=== PATIENT | female | born 1990 | race African-American/Black ===

== ENCOUNTER 2016-07-19 18:29 | Emergency (ER) | payer OTHER, SELFPAY ==
[2016-07-19] MEDS ORDERED: Amoxicillin/Potassium Clav 875 MG TAB ONE (19:11)
[2016-07-19] MEDS ORDERED: Ondansetron HCl/PF 4 MG/2 ML Vial ONE ×2 (19:11→22:14)
[2016-07-19] MEDS ORDERED: Acetaminophen 325 MG TAB ONE (19:11)
[2016-07-19] MEDS ORDERED: Sodium Chloride 0.9% 1,000 ML ONE (19:11)
[2016-07-19 19:43] LABS: #Basophils 0.1 thou/uL (0.0-0.2); #Lymphocytes 1.5 thou/uL (1.20-3.40); #Monocytes 0.7 thou/uL (0.11-0.59); #Neutrophils 8.1 thou/uL (1.40-6.50); %Basophils 0.5 % (0.0-1.0); %Eosinophils 0.2 % (0.0-10.0); %Lymphocytes 14.8 % (21.0-51.0); %Monocytes 6.4 % (0.0-10.0); Hematocrit 38.2 % (36.0-47.0); Mean Platelet Volume 7.8 fL (7.4-10.4); Red Blood Cell (RBC) Count 4.64 mill/uL (4.20-5.40); White Blood Cell (WBC) Count 10.3 thou/uL (4.8-10.8)
[2016-07-19 19:53] LABS: Anion Gap 19 mmol/L (10-20); BUN (Urea Nitrogen) 7 mg/dL (7.0-18.7); Calc. Creatinine Clearance 0 mL/min (70-130); Calcium 9.9 mg/dL (7.8-10.44); Carbon Dioxide 20 mmol/L (22-29); Chloride 100 mmol/L (98-107); Estimated GFR-MDRD Greater than 90
[2016-07-19] MEDS ORDERED: Insulin Regular 300 UNITS/3 ML VIAL ONE (20:31)
[2016-07-19 23:12] LABS: Blood, Urine Negative (Negative); Glucose, Urine (Dipstick) 500 mg/dL (Negative); Ketone, Urine > or equal to 80 mg/dL (Negative); Nitrite Negative (Negative); Protein, Urine (Dipstick) 100 mg/dL (Neg-Trace)
[2016-07-19 23:13] LABS: Bacteria/HPF None Seen HPF (None Seen); Bilirubin Negative (Negative); RBC/HPF None Seen HPF (0-3); WBC/HPF None Seen HPF (0-3)
[2016-07-19] MEDS ORDERED: Metoclopramide HCl 10 MG/2 ML VIAL ONE (23:13)
[2016-07-20 00:13] LABS: Base Excess -3.6 mEq/L (0 (+/- 2.5))
--- NOTE | 2016-07-20 00:52 | ERRECORD ---
[facility] EMERGENCY RECORD HPI URI (21:51 AGRE) CHIEF COMPLAINT: Patient presents for evaluation of nasal congestion. HISTORIAN: History provided by patient, SINUS PRESSURE ON RIGHT WITH PAIN BEHIND THE RIGHT EYE FOR 4 DAYS. 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 HAS GREEN NASAL DRAINAGE. NO FEVER OR CHILLS. HAS BEEN VOMITING AND UNABLE TO KEEP ANYTHING DOWN FOR 2 DAYS. SENT HERE FROM WORK TODAY BECAUSE OF VOMITING. IS DIABETIC AND HAS NOT BEEN TAKING HER INSULIN. NO ABDOMINAL PAINS OR OTHER SYMPTOMS. LOCATION: No localizing symptoms. QUALITY: Pain is dull in nature, described as aching, described as a sensation of fullness, described as pressure-like. SEVERITY: Maximum severity of symptoms mild, Currently symptoms are mild. TIME COURSE: Gradual onset of symptoms, Symptoms are worsening. ASSOCIATED WITH: No associated chest pain, No associated chills, No associated fever, No associated neck pain, No associated shortness of breath, Denies any other complaints. EXACERBATED BY: Patient's condition exacerbated by nothing. RELIEVED BY: Patient's condition relieved by nothing. ROS (21:53 AGRE) CONSTITUTIONAL: Historian denies chills, denies fever, denies weakness. EYES: Historian reports eye pain, denies eye redness, denies vision changes. ENT: Historian reports rhinorrhea, reports sinus pain, denies sore throat, denies stridor. CARDIOVASCULAR: Historian denies chest pain, denies diaphoresis. RESPIRATORY: Historian denies cough, denies shortness of breath, denies sputum, denies stridor, denies wheezing. GI: Historian denies abdominal pain, reports nausea, reports vomiting. MUSCULOSKELETAL: Historian denies back pain, denies neck pain. SKIN: Historian denies skin changes, denies skin lesions. NEUROLOGIC: Historian denies confusion, denies dizziness, denies focal weakness, denies headache. HEMO/LYMPHATIC: Normal hematologic/lymphatic system review, Historian denies petechiae. PSYCHIATRIC: Negative psychiatric review of systems, Historian denies anxiety. PAST MEDICAL HISTORY (18:47 JPAR) MEDICAL HISTORY: Flu vaccine not up to date, Tetanus not up to date, Pneumococcal vaccine up to date, Date of immunization: 2014, Past medical history includes history of diabetes, Type II, Past medical history includes history of diabetes, Type II. FEMALE SURGICAL HISTORY: Surgical history of &a-1R&a+25V*p+0X*r0842A*c202B*c15G*c2P*p-0X&a-25V&a+1R Name: Angelita Crowell : 1990 F25 MedRec: [id number] AcctNum: [id number] Prepared: MonJul 20, 2016 00:53 by Interface Page 1 of 5 D [facility] EMERGENCY RECORD section. SOCIAL HISTORY: Patient has no smoking history, Patient denies alcohol use, Patient denies drug use. FAMILY HISTORY: Notes: family HX hypertension. KNOWN ALLERGIES No Known Drug Allergies CURRENT MEDICATIONS (18:45 JPAR) None VITAL SIGNS VITAL SIGNS: BP: 135/87, Pulse: 130, Resp: 16, Temp: 99.3 (Oral), Pain: 3, O2 sat: 100, Time: 07/19/2016 18:43. (18:43 JPAR) BP: 137/96, Pulse: 112, Resp: 18, Pain: 4, O2 sat: 100 on Room Air, Time: 07/19/2016 19:56. (19:56 MSMI) BP: 142/98, Pulse: 107, Resp: 16, Temp: 99.3 (Oral), Pain: 4, O2 sat: 100 on Room Air, Time: 07/19/2016 20:41. (20:41 MSMI) BP: 128/72, Pulse: 115, Resp: 18, O2 sat: 98 on Room Air, Time: 07/19/2016 21:40. (21:40 MSMI) BP: 134/89, Pulse: 109, Resp: 16, Temp: 99.0 (Oral), Pain: 0, O2 sat: 100 on Room Air, Time: 07/19/2016 22:51. (22:51 MSMI) BP: 129/86, Pulse: 109, Resp: 14, Pain: 0, O2 sat: 100 on Room Air, Time: 07/19/2016 23:20. (23:20 MSMI) BP: 122/81, Pulse: 111, Resp: 16, Temp: 99.3, Pain: 0, O2 sat: 100 on RA, Time: 07/20/2016 00:37. (MonJul 20, 2016 00:37 MSMI) PHYSICAL EXAM (21:54 AGRE) CONSTITUTIONAL: Vital Signs Reviewed, Patient afebrile, Patient appears non toxic, Patient appears pain free, Patient alert and oriented to person, place and time, Nursing notes reviewed. HEAD: Head exam included findings of head atraumatic, normocephalic. EYES: Eye exam included findings of eyelids normal to inspection, Pupils equally round and reactive to light, Extraocular muscles intact, Conjunctiva normal, Sclera normal, no periorbital ecchymosis, no periorbital edema, no periorbital erythema. ENT: Ear exam normal, tympanic membranes normal, Nose exam included findings of, turbinate mucosa discharge, ERYTHEMA AND SWELLING OF TURBINATES WITH YELLOW CORYZA, Pharynx, injected bilaterally, no swelling, symmetrical, Uvula, without edema, midline, Tonsils, not enlarged, without exudates, Mouth exam normal, Maxillary sinuses with, tenderness on the right, no erythema, no swelling. NECK: Neck exam normal, Neck exam included findings of normal range of motion, no meningeal signs. RESPIRATORY CHEST: Respiratory and chest exam normal, Respiratory exam included findings of no respiratory distress, Breath sounds clear, No wheezing, No rales, No rhonchi, Breath sounds not &a-1R&a+25V*p+0X*j5118M*c202B*c15G*c2P*p-0X&a-25V&a+1R Name: Angelita Crowell : 1990 F25 MedRec: [id number] AcctNum: [id number] Prepared: MonJul 20, 2016 00:53 by Interface Page 2 of 5 D [facility] EMERGENCY RECORD diminished. CARDIOVASCULAR: Cardiovascular exam included findings of, rate tachycardic, rhythm regular, Heart sounds normal, normal S1, normal S2, no murmurs, no rub, no gallop. ABDOMEN FEMALE: Abdominal exam normal, Abdominal exam included findings of abdomen nontender, Bowel sounds normal, Liver normal, Spleen normal, no distension, no mass, no pulsatile masses. BACK: Back exam included findings of normal inspection, range of motion normal. UPPER EXTREMITY: Upper extremity exam included findings of inspection normal, Range of motion normal. LOWER EXTREMITY: Lower extremity exam included findings of inspection normal, Range of motion normal. NEURO: Neuro exam normal, Neuro exam findings include patient oriented to person, place and time, Speech normal, Memory normal, Cranial nerves intact, no focal motor deficits. SKIN: Skin exam included findings of skin warm, dry, and normal in color. PSYCHIATRIC: Psychiatric exam normal, Normal affect. MEDICATION ADMINISTRATION SUMMARY Drug Name: Reglan injection, Dose Ordered: 10 mg, Route: IV Push, Status: Given, Time: 23:16 07/19/2016, Drug Name: *sodium chloride 0.9 % intravenous, Dose Ordered: 500 mL, Route: IV Fluid Infusion, Status: Given, Time: 22:52 07/19/2016, Drug Name: *HumuLIN R, Dose Ordered: 6 units, Route: IV Push, Status: Given, Time: 22:40 07/19/2016, Drug Name: *Zofran oral, Dose Ordered: 4 mg, Route: IV Push, Status: Given, Time: 22:19 07/19/2016, Drug Name: *sodium chloride 0.9 % intravenous, Dose Ordered: 500 mL, Route: IV Fluid Infusion, Status: Given, Time: 22:13 07/19/2016, Drug Name: *HumuLIN R, Dose Ordered: 6 units, Route: Subcutaneous, Status: Given, Time: 20:40 07/19/2016, Drug Name: sodium chloride 0.9 % intravenous, Dose Ordered: 1000 mL, Route: IV Fluid Infusion, Status: Given, Time: 20:37 07/19/2016, Drug Name: sodium chloride 0.9 % intravenous, Dose Ordered: 1000 mL, Route: IV Fluid Infusion, Status: Given, Time: 19:20 07/19/2016, Drug Name: ondansetron HCl intravenous, Dose Ordered: 4 mg, Route: IV Push, Status: Given, Time: 19:18 07/19/2016, Drug Name: Augmentin, Dose Ordered: 875 mg, Route: Oral, Status: Given, Time: 19:13 07/19/2016, Drug Name: Tylenol, Dose Ordered: 650 mg, Route: Oral, Status: Given, Time: 19:11 07/19/2016, *Additional information available in notes, Detailed record available in Medication Service section. DOCTOR NOTES (21:58 AGRE) RE-EVALUATION: Routine re-evaluation, after administration of antiemetics, Routine re-evaluation, after administration of IV fluids, The patient's condition has improved. &a-1R&a+25V*p+0X*m1576J*c202B*c15G*c2P*p-0X&a-25V&a+1R Name: Angelita Crowell : 1990 F25 MedRec: [id number] AcctNum: [id number] Prepared: MonJul 20, 2016 00:53 by Interface Page 3 of 5 pMD [facility] EMERGENCY RECORD TEXT: PATIENT REMAINED IN SINUS TACHYCARDIC IN THE ED DESPITE 3 LITERS OF IV FLUIDS. REVIEW OF HER OLD RECORDS SHOW THAT SHE HAS BEEN TACHYCARDIC FOR YEARS WITH ALL HER ED VISITS. A TSH WAS OBTAINED AND IT IS LOW SUGGESTING HYPERTHYRODISM. SHE HAD ELEVATED SERUM KETONES FROM AN EARLIER SPECIMEN BUT A VENOUS BLOOD GAS WAS OBTAINED DUE AND HER PH IS 7.44 AND BICARB 21. SHE LOOKS GOOD AND SAYS SHE FEELS GOOD. SHE DENIES ANY PAIN OR OTHER SYMPTOMS. SHE HAS REMAINED ALERT AND ORIENTED WITHOUT NEURO CHANGES IN THE ED. FEELING BETTER AFTER IV FLUIDS AND INSULIN. PATIENT SAYS DOES NOT TAKE HER INSULIN BECAUSE SHE IS STUBBORN. HAD LENGTHY DISCUSSION WITH HER ABOUT THE HALF-WAY RISK AND DISEASE ASSOCIATED WITH DIABETES AND UNCONTROLLED HYPERGLYCEMIA. ADVISED HER OF THE FINDINGS ON EXAM, RESULTS OF HER TEST, MANAGEMENT OF HER SYMPTOMS, NEED TO RESTART HER INSULIN AND NEED FOR CLOSE FOLLOW UP. SHE EXPRESS UNDERSTANDING AND AGREEMENT AND SAYS THAT SHE WILL RESTART HER MEDICATIONS. SHE HAS A FAMILY MEMBER HERE WHO IS A NURSE AND WILL BE TAKING CARE OF HER AT HOME. SHE WILL CHECK HER BLOOD SUGAR TONIGHT AND WILL RESTART HER INSULIN IN THE MORNING. SHE DOES NOT LOOK TOXIC AND I FEEL COMFORTABLE SENDING HER HOME AT THIS TIME. DISCUSSED THIS WITH HER AND THE FAMILY AND THEY AGREE WITH THIS PLAN. ADVISED THEM OF THE TACHYCARDIA AND TSH. PATIENT STATUS: Patient has improved since arrival to emergency department. PATIENT PLAN: The patient will be discharged. DATA REVIEWED: Old records obtained, Old records reviewed, Discussed with family, Lab data reviewed. PROBLEM LIST No recorded problems DIAGNOSIS (MonJul 20, 2016 00:29 AGRE) FINAL: PRIMARY: Type 2 Diabetes mellitus (NIDDM) - controlled, ADDITIONAL: ACUTE SINUSITIS UNSPECIFIED, HYPERTHYROIDISM. PRESCRIPTION Levemir: VIAL (ML) : 100 unit/mL : SUBCUTANEOUS : Quantity: 7 Unit: units Route: SUBCUTANEOUS Schedule: 2 times a day Dispense: 1 Unit: vial(s) May substitute. Refills: No Refills . (20:53 AGRE) NOTES: No Refills. (20:53 AGRE) Augmentin: TABLET : 875 mg-125 mg : ORAL : Quantity: 1 Unit: tab(s) Route: ORAL Schedule: every 12 hours Dispense: 20 Unit: tab(s) May substitute. Refills: No Refills . (20:54 AGRE) NOTES: No Refills. (20:54 AGRE) Zofran oral: TABLET : 4 mg : ORAL : Quantity: 1 Unit: tab(s) Route: ORAL Schedule: every 6 hours PRN Dispense: 10 May substitute. Refills: No Refills . (20:56 AGRE) NOTES: No Refills. (20:56 AGRE) &a-1R&a+25V*p+0X*c8980D*c202B*c15G*c2P*p-0X&a-25V&a+1R Name: Angelita Crowell : 1990 F25 MedRec: [id number] AcctNum: [id number] Prepared: MonJul 20, 2016 00:53 by Interface Page 4 of 5 pMD [facility] EMERGENCY RECORD DISPOSITION PATIENT: Disposition Type: Discharge, Disposition: *Discharge Home, Condition: Improved. (20:48 AGRE) Disposition Type: (none), Disposition: (none). (22:58 AGRE) Disposition Type: Discharge, Disposition: *Discharge Home. (23:42 AGRE) Patient left the department. (MonJul 20, 2016 00:40 MSMI) [place]ightower: AGRE=MD Sean, Panchito HATHAWAY=ELIZABETH Greenberg Jason MSMI=ELIZABETH Ellis, Cindi &a-1R&a+25V*p+0X*q8345J*c202B*c15G*c2P*p-0X&a-25V&a+1R Name: Angelita Crowell : 1990 F25 MedRec: [id number] AcctNum: [id number] Prepared: Sesar Jul 20, 2016 00:53 by Interface Page 5 of 5 pMD MTDD
--- NOTE | 2016-07-20 00:58 | PICIS ---
[facility] EMERGENCY RECORD TRIAGE (MonJul 19, 2016 18:45 JPAR) TRIAGE NOTES: Sinus pressure, runny nose. Right side headache. (MonJul 19, 2016 18:45 JPAR) PATIENT: NAME: Angelita Crowell, AGE: 25, GENDER: female, : Sat 1990, TIME OF GREET: MonJul 19, 2016 18:30, PREFERRED LANGUAGE: Belarusian, ETHNICITY: Not or , ECODE BILLING MAP: [facility], SSN: [id number], Zip Code: [address], KG WEIGHT: 58.97, PHONE: , , , PERSON ID: [id number], PCP: [facility]. (MonJul 19, 2016 18:45 JPAR) COMPLAINT: Sinus Pain / Hyperglycemia. (23:58 MSMI) ADMISSION: URGENCY: 4 Non Urgent, ADMISSION SOURCE: Home, TRANSPORT: CAR, BED: TRIAGE. (MonJul 19, 2016 18:45 JPAR) ASSESSMENT: Assessment: right sided sinus headache with runny nose, 3 days, Symptoms began 3 days, Symptoms began 3 days ago. (18:47 JPAR) SIRS SCORING: Heart Rate 110-139 (2), Temp range 96.8-101.1 (0), respiratory rate 12-24 (0), Mental Status altered: no (0), Infection or Suspected Infection: No. (18:47 JPAR) TRIAGE SCREENING: Patient denies suicidal ideation, Patient denies presence of domestic violence. (18:47 JPAR) PROVIDERS: TRIAGE NURSE: Jose Greenberg RN. (MonJul 19, 2016 18:45 JPAR) VITAL SIGNS: BP 135/87, Pulse 130, Resp 16, Temp 99.3, (Oral), Pain 3, O2 Sat 100, Time 07/19/2016 18:43. (18:43 JPAR) PREVIOUS VISIT ALLERGIES: No Known Drug Allergies. (MonJul 19, 2016 18:45 JPAR) No Known Drug Allergies. (18:47 JPAR) KNOWN ALLERGIES No Known Drug Allergies CURRENT MEDICATIONS (18:45 JPAR) None VITAL SIGNS VITAL SIGNS: BP: 135/87, Pulse: 130, Resp: 16, Temp: 99.3 (Oral), Pain: 3, O2 sat: 100, Time: 07/19/2016 18:43. (18:43 JPAR) BP: 137/96, Pulse: 112, Resp: 18, Pain: 4, O2 sat: 100 on Room Air, Time: 07/19/2016 19:56. (19:56 MSMI) BP: 142/98, Pulse: 107, Resp: 16, Temp: 99.3 (Oral), Pain: 4, O2 sat: 100 on Room Air, Time: 07/19/2016 20:41. (20:41 MSMI) BP: 128/72, Pulse: 115, Resp: 18, O2 sat: 98 on Room Air, Time: 07/19/2016 21:40. (21:40 MSMI) BP: 134/89, Pulse: 109, Resp: 16, Temp: 99.0 (Oral), Pain: 0, O2 sat: 100 on Room Air, Time: 07/19/2016 22:51. (22:51 MSMI) BP: 129/86, Pulse: 109, Resp: 14, Pain: 0, O2 sat: 100 on Room Air, Time: 07/19/2016 23:20. (23:20 MSMI) BP: 122/81, Pulse: 111, Resp: 16, Temp: 99.3, Pain: 0, O2 sat: 100 on RA, Time: 07/20/2016 00:37. (MonJul 20, 2016 00:37 MSMI) &a-1R&a+25V*p+0X*s5594A*c202B*c15G*c2P*p-0X&a-25V&a+1R Name: Angelita Crowell : 1990 F25 MedRec: [id number] AcctNum: [id number] Prepared: MonJul 20, 2016 01:01 by Interface Page 1 of 16 D [facility] EMERGENCY RECORD NURSING ASSESSMENT: ENT CONSTITUTIONAL: Patient arrives ambulatory, Gait steady, History obtained from patient, Patient appears comfortable, Patient cooperative, Patient alert, Oriented to person, place and time, Skin warm, Skin dry, Skin normal in color, Mucous membranes pink, Mucous membranes moist, Patient complains of Sinus Headache runny nose. (18:45 JPAR) Patient arrives ambulatory, Gait steady, History obtained from patient, Patient appears, uncomfortable, Patient cooperative, Patient alert, Oriented to person, place and time, Skin warm, Skin dry, Skin normal in color, Mucous membranes pink, Mucous membranes moist, Patient is well-groomed, Patient complains of Cough, Sinus Pressure, patient reports right sided sinus pressure (under eye) beginning Monday. Patient reports coughing up mucous, yellow colored sputum. Patient reports seasonal allergies. Patient comes to ED with tachycardia. (19:52 MSMI) PAIN: aching pain, R temporal eye, Onset of pain 3 days, on a scale 0-10 patient rates pain as 3. (18:45 JPAR) throbbing pain, Under right eye, Onset of pain 07/13/2016, intermittent, on a scale 0-10 patient rates pain as 4, Pain exacerbated by nothing, Nothing has been tried to alleviate the pain. (19:52 MSMI) ENT: Ear assessment findings include ear normal to inspection, no drainage from ears, no complaint of hearing deficit, no complaint of tinnitus, no complaint of dizziness, no myringotomy tubes, no foreign body, Nasal assessment findings include nose normal to inspection, Sinuses normal, Nasal mucosa normal, no bleeding, Discharge, thick, yellow, from bilateral nare, no complaint of congestion, no complaint of foreign body, Mouth and throat assessment findings include mouth inspection normal, Uvula normal, Tonsils normal, Mucous membranes pink, and moist, Able to swallow, Speech normal, no associated fever, no associated headache, no associated decrease in oral intake. (19:52 MSMI) RESPIRATORY/CHEST: Breath sounds clear, Respiratory assessment findings include respiratory effort easy, Respirations regular, Conversing normally, Neck and chest exam findings include trachea midline, Chest expansion equal, Chest movement symmetrical, no signs of distress, no retractions noted, no cyanosis, no jugular vein distension, no tenderness to palpation, no crepitus noted, no subcutaneous emphysema noted, no deformity noted, no associated cough noted, no associated fever, no associated fume exposure. (18:45 JPAR) Breath sounds clear, Respiratory assessment findings include respiratory effort easy, Respirations regular, Conversing normally, Neck and chest exam findings include trachea midline, Chest expansion equal, Chest movement symmetrical, no signs of distress, no retractions noted, no cyanosis, no jugular vein distension, no tenderness to palpation, Associated with cough, productive of, yellow sputum, no associated fever, no associated fume &a-1R&a+25V*p+0X*v5040K*c202B*c15G*c2P*p-0X&a-25V&a+1R Name: Angelita Crowell : 1990 F25 MedRec: [id number] AcctNum: [id number] Prepared: MonJul 20, 2016 01:01 by Interface Page 2 of 16 pMD [facility] EMERGENCY RECORD exposure. (19:52 MSMI) SAFETY: Side rails up, Cart/Stretcher in lowest position, Family at bedside, Call light within reach, Hospital ID band on. (18:45 JPAR) Side rails up, Cart/Stretcher in lowest position, Call light within reach, Hospital ID band on. (19:52 MSMI) NURSING ASSESSMENT: FALL RISK (23:04 MSMI) FALL RISK: Fall risk assessment findings include: no history of falls (0), No bed rest greater than 2 days (0), No use of level of consciousness altering agents with mentation or cognitive changes (0), No change in blood pressure (0), No sensory deficits (0), No impaired mobility (0), No neurologic diagnosis (0), No elimination problems (0), No confusion (0), Total score 0. NURSING ASSESSMENT: SKIN (23:04 MSMI) SKIN: Skin assessment findings include skin warm, Skin dry, Skin normal in color, Inspection findings include no abrasions, Inspection findings include no contusion, Inspection findings include: No pressure ulcer to the shoulder, Inspection findings include no pressure ulcer to the elbow, Inspection findings include no pressure ulcers to the hip, Inspection findings include no pressure ulcer to the sacrum, Inspection findings include no pressure ulcer to the heel, Inspection findings include no pressure ulcer, Inspection findings include no pressure ulcer, Inspection findings include no rash, Inspection findings include no signs of infection, Inspection findings include no signs of trauma, Inspection findings include no swelling. [place] SCALE: (4) Sensory perception has no impairment, (4) Skin is rarely moist, (4) Patient walks frequently, (4) No mobility limitations, (3) Adequate nutrition, (3) Patient has no apparent problem moving. SAFETY: Side rails up, Cart/Stretcher in lowest position, Family at bedside, Call light within reach, Hospital ID band on. NURSING PROCEDURE: BEDSIDE SIRS TESTING (23:05 MSMI) SCORES: Heart Rate 55-109 (0), Temp range 96.8-101.1 (0), respiratory rate 12-24 (0), Latest WBC 3-14.9 (0), Mental Status altered: no (0), Yes, Infection or Suspected Infection. NURSING PROCEDURE: BEDSIDE TESTING PATIENT IDENTIFIER: Patient actively involved in identification process, Patient's identity verified by patient stating name, Patient's identity verified by patient stating date, Patient's identity verified by hospital ID bracelet. (20:29 MSMI) GLUCOSE: Glucose testing indicated for diabetic patient, Capillary blood sample, Result (mg/dl) 278. (20:29 [facility] Glucose testing indicated for hyperglycemia, Capillary blood sample, Result (mg/dl) 249. (22:33 [facility]) Venous blood sample, Result (mg/dl) 173. (23:15 [facility]) &a-1R&a+25V*p+0X*f0558P*c202B*c15G*c2P*p-0X&a-25V&a+1R Name: Angelita Crowell : 1990 F25 MedRec: [id number] AcctNum: [id number] Prepared: MonJul 20, 2016 01:01 by Interface Page 3 of 16 [facility] EMERGENCY RECORD FOLLOW-UP: After procedure, results given to Dr. Sean MD. (20:29 MSMI) After procedure, results given to Dr. MORA. (22:33 [facility]) After procedure, results given to Dr. MORA. (23:15 [facility]) SAFETY: Side rails up, Cart/Stretcher in lowest position, Family at bedside, Call light within reach, Hospital ID band on. (20:29 MSMI) NURSING PROCEDURE: DISCHARGE NOTE (MonJul 20, 2016 00:37 MSMI) DISCHARGE: Patient discharged to home, ambulating without assistance, family driving, accompanied by parent, Discharge instructions given to patient, Discharge instructions given to mother, Prescriptions given and instructions on side effects given, Above person(s) verbalized understanding of discharge instructions and follow-up care, Patient treated and evaluated by physician. BELONGINGS: Belongings and valuables with patient at time of discharge include:, Belongings remain with patient, Valuables remain with patient. SAFETY: Side rails up, Cart/Stretcher in lowest position, Family at bedside, Call light within reach, Hospital ID band on. VITAL SIGNS: BP: 122, / 81, Pulse: 111, Resp: 16, Temp: 99.3, Pain: 0, O2 sat: 100, on: RA. NURSING PROCEDURE: ENT (20:00 MSMI) PATIENT IDENTIFIER: Patient actively involved in identification process, Patient's identity verified by patient stating name, Patient's identity verified by patient stating date. ENT: ENT care indicated for specimen collection, Nasal swab collected, labeled in the presence of the patient and sent to lab for testing of, influenza A, influenza B, collected by ELIZABETH Puente. SAFETY: Side rails up, Cart/Stretcher in lowest position, Family at bedside, Call light within reach, Hospital ID band on. NURSING PROCEDURE: IV PATIENT IDENITIFIER: Patient actively involved in identification process, Patient's identity verified by patient stating name, Patient's identity verified by patient stating date, Patient's identity verified by hospital ID bracelet, Patient's identity verified by family member. (19:15 JPAR) IV SITE 1: IV therapy indicated for hydration, IV therapy indicated for medication administration, IV established, to the right antecubital, using a 20 gauge catheter, in one attempt, IV site prepped with clorohexaphine, Saline lock established, Flushed with normal saline (mls): 10, Labs drawn at time of placement, labeled in the presence of the patient and sent to lab. (19:15 JPAR) FOLLOW-UP SITE 1: After procedure, no drainage at IV site, After procedure, no swelling at IV site, After procedure, no redness at IV site, IV discontinued, due to patient being discharged, catheter intact. (MonJul 20, 2016 00:35 MSMI) SAFETY: Side rails up, Cart/Stretcher in lowest position, Family &a-1R&a+25V*p+0X*d6603L*c202B*c15G*c2P*p-0X&a-25V&a+1R Name: Angelita Crowell : 1990 F25 MedRec: [id number] AcctNum: [id number] Prepared: MonJul 20, 2016 01:01 by Interface Page 4 of 16 pMD [facility] EMERGENCY RECORD at bedside, Call light within reach, Hospital ID band on. (19:15 [facility]) NURSING PROCEDURE: LAB DRAW LAB DRAW: Lab draw indicated for obtaining specimens for evaluation, Subsequent lab draw performed, from vascular access device, existing IV site, RIGHT AC, Lab specimens labeled in the presence of the patient and sent to lab, 10ML WASTED BEFORE OBTAINING SAMPLE. (23:15 [facility]) Lab draw indicated for obtaining specimens for evaluation, Subsequent lab draw performed, from vascular access device, existing IV site, RIGHT AC, Lab specimens labeled in the presence of the patient and sent to lab, 10ML WASTED BEFORE OBTAINING SAMPLE. (MonJul 20, 2016 00:00 [facility]) NURSING PROCEDURE: NURSE NOTES (23:19 MSMI) NURSES NOTES: Notes: Patient ambulates to the restroom and voids 200mL of clear, yellow urine. NURSING PROCEDURE: URINE COLLECTION (22:54 MSMI) PATIENT IDENTIFIER: Patient actively involved in identification process, Patient's identity verified by patient stating name, Patient's identity verified by patient stating date, Patient's identity verified by family member. URINE COLLECTION FEMALE: Urine collection indicated for facilitate diagnosis, Urine collected by mid-stream clean catch, urine yellow in color, and clear, no sediment noted, Specimen labeled in the presence of the patient and sent to lab, Specimen obtained for culture labeled in the presence of the patient and sent to lab, Notes: Collected by ELIZABETH Garcia prior to assuming care. SAFETY: Side rails up, Cart/Stretcher in lowest position, Family at bedside, Call light within reach, Hospital ID band on. ORDER DETAILS Order Name: Basic Metabolic Panel, Status: Active, Time: 19:06 07/19/2016, User: LIZETTE, - Ordered for: MD Mora Andrea, - Entered by: MD Mora Andrea - Tue Jul 19, 2016 19:06, - Quantity: 1, Order Name: Beta-Hydroxybutyrate (Ketone), Status: Active, Time: 22:45 07/19/2016, User: LIZETTE, - Ordered for: MD Mora Andrea, - Entered by: MD Mora Andrea - Tue Jul 19, 2016 22:45, - Quantity: 1, Order Name: Beta-Hydroxybutyrate (Ketone), Status: Canceled, Time: 22:12 07/19/2016, User: System, - Ordered for: MD Mora Andrea, - Entered by: MD Mora Andrea - Tue Jul 19, 2016 20:14, - Quantity: 1, &a-1R&a+25V*p+0X*l5005I*c202B*c15G*c2P*p-0X&a-25V&a+1R Name: Angelita Crowell : 1990 F25 MedRec: [id number] AcctNum: [id number] Prepared: MonJul 20, 2016 01:01 by Interface Page 5 of 16 [facility] EMERGENCY RECORD Order Name: BLOOD GLUCOSE MONITOR, Status: Done, Time: 20:28 07/19/2016, User: EDU, - Ordered for: MD Mora Andrea, - Entered by: MD Mora Andrea - asntino Jul 19, 2016 20:14, - Quantity: 1, Order Name: CBC with Differential, Status: Active, Time: 19:06 07/19/2016, User: LIZETTE, - Ordered for: MD Mora Andrea, - Entered by: MD Mora Andrea - Tue Jul 19, 2016 19:06, - Quantity: 1, Order Name: Influenza A&B Ag Screen, Status: Active, Time: 19:58 07/19/2016, User: EDU, - Ordered for: MD Mora Andrea, - Entered by: ELIZABETH Ellis Megan - Tue Jul 19, 2016 19:58, - Quantity: 1, Order Name: Test, Urine (BHCG), Status: Active, Time: 19:06 07/19/2016, User: LIZETTE, - Ordered for: MD Mora Andrea, - Entered by: MD Mora Andrea - Tue Jul 19, 2016 19:06, - Quantity: 1, Order Name: SALINE LOCK, Status: Done, Time: 19:28 07/19/2016, User: RIVAS, - Ordered for: MD Mora Andrea, - Entered by: MD Mora Andrea - santino Jul 19, 2016 19:06, - Quantity: 1, Order Name: Thyroid Stimulating Hormone, Status: Active, Time: 22:47 07/19/2016, User: LIZETTE, - Ordered for: MD Mora Andrea, - Entered by: MD Mora Andrea - Tue Jul 19, 2016 22:47, - Quantity: 1, Order Name: Urinalysis w/ Rflx Microscopic, Status: Active, Time: 22:46 07/19/2016, User: LIZETTE, - Ordered for: MD Mora Andrea, - Entered by: MD Mora Andrea - Tue Jul 19, 2016 22:46, - Quantity: 1, Order Name: VBG (For BUR,MAD, and ROSE MARY), Status: Active, Time: 00:01 07/20/2016, User: MANDEEP, - Ordered for: MD Mora Andrea, - Entered by: ELIZABETH Garcia, Marilou - MonJul 20, 2016 00:01, - Quantity: 1. MEDICATION ADMINISTRATION SUMMARY Drug Name: Reglan injection, Dose Ordered: 10 mg, Route: IV Push, Status: Given, Time: 23:16 07/19/2016, Drug Name: *sodium chloride 0.9 % intravenous, Dose Ordered: 500 mL, Route: IV Fluid Infusion, Status: Given, Time: 22:52 07/19/2016, Drug Name: *HumuLIN R, Dose Ordered: 6 units, Route: IV Push, Status: Given, Time: 22:40 07/19/2016, Drug Name: *Zofran oral, Dose Ordered: 4 mg, Route: IV Push, Status: &a-1R&a+25V*p+0X*m9038J*c202B*c15G*c2P*p-0X&a-25V&a+1R Name: Angelita Crowell : 1990 F25 MedRec: [id number] AcctNum: [id number] Prepared: MonJul 20, 2016 01:01 by Interface Page 6 of 16 pMD [facility] EMERGENCY RECORD Given, Time: 22:19 07/19/2016, Drug Name: *sodium chloride 0.9 % intravenous, Dose Ordered: 500 mL, Route: IV Fluid Infusion, Status: Given, Time: 22:13 07/19/2016, Drug Name: *HumuLIN R, Dose Ordered: 6 units, Route: Subcutaneous, Status: Given, Time: 20:40 07/19/2016, Drug Name: sodium chloride 0.9 % intravenous, Dose Ordered: 1000 mL, Route: IV Fluid Infusion, Status: Given, Time: 20:37 07/19/2016, Drug Name: sodium chloride 0.9 % intravenous, Dose Ordered: 1000 mL, Route: IV Fluid Infusion, Status: Given, Time: 19:20 07/19/2016, Drug Name: ondansetron HCl intravenous, Dose Ordered: 4 mg, Route: IV Push, Status: Given, Time: 19:18 07/19/2016, Drug Name: Augmentin, Dose Ordered: 875 mg, Route: Oral, Status: Given, Time: 19:13 07/19/2016, Drug Name: Tylenol, Dose Ordered: 650 mg, Route: Oral, Status: Given, Time: 19:11 07/19/2016, *Additional information available in notes, Detailed record available in Medication Service section. MEDICATION SERVICE Augmentin: Order: Augmentin (amoxicillin trihydrate/potassium clavulanate) - Dose: 875 mg : Oral Ordered by: Panchito Mora MD Entered by: Panchito Mora MD MonJul 19, 2016 19:04 , Acknowledged by: Jose Greenberg RN MonJul 19, 2016 19:09 Documented as given by: Jose Greenberg RN MonJul 19, 2016 19:13 Patient, Medication, Dose, Route and Time verified prior to administration. Patient appears Awake and alert- acceptable, Correct patient, time, route, dose and medication confirmed prior to administration, Patient advised of actions and side-effects prior to administration, Allergies confirmed and medications reviewed prior to administration, Patient in position of comfort, Side rails up, Cart in lowest position, Family at bedside, Call light in reach. HumuLIN R: Order: HumuLIN R (insulin regular, human) - Dose: 6 units : Subcutaneous Schedule: Now Notes: Read back and verified, Verbal Order Ordered by: Panchito Mora MD Entered by: Cindi Ellis RN Jul 19, 2016 20:39 , Acknowledged by: Cindi Ellis RN Jul 19, 2016 20:40 Documented as given by: Cindi Ellis RN Jul 19, 2016 20:40 Patient, Medication, Dose, Route and Time verified prior to administration. Verbal order read back and verified, Amount given: 6 units, Medication administered to right abdomen, Correct patient, time, route, dose and medication confirmed prior to administration, Patient advised of actions and side-effects prior to administration, Allergies confirmed and medications reviewed prior to administration, Patient tolerated procedure well, Advised not to ambulate without assistance, Patient in position of comfort, Side rails up, Cart in lowest position, Family at bedside, Call light in reach, &a-1R&a+25V*p+0X*i0146F*c202B*c15G*c2P*p-0X&a-25V&a+1R Name: Angelita Crowell : 1990 F25 MedRec: [id number] AcctNum: [id number] Prepared: MonJul 20, 2016 01:01 by Interface Page 7 of 16 pMD [facility] EMERGENCY RECORD Co-signed by: Travis Burks RN MonJul 19, 2016 22:18. HumuLIN R: Order: HumuLIN R (insulin regular, human) - Dose: 6 units : IV Push Schedule: Now Notes: Read back and verified, Verbal Order Ordered by: Panchito Mora MD Entered by: Panchito Mora MD Jul 19, 2016 22:37 Documented as given by: Marilou Garcia RN Jul 19, 2016 22:40 Patient, Medication, Dose, Route and Time verified prior to administration. Amount given: 6UNITS, IV SITE #1 IVP, subsequent different medication, Slowly, Awake and alert- acceptable, Catheter placement confirmed via flush prior to administration, IV site without signs or symptoms of infiltration during medication administration, No swelling during administration, No drainage during administration, IV flushed after administration, Correct patient, time, route, dose and medication confirmed prior to administration, Patient advised of actions and side-effects prior to administration, Allergies confirmed and medications reviewed prior to administration, Co-signed by: Cindi Ellis RN MonJul 19, 2016 22:44. : Follow Up : No signs or symptoms of allergic reaction noted, _IV SITE #1:_, BS DECREASED TO 173. (23:15 [facility]) ondansetron HCl intravenous: Order: ondansetron HCl intravenous (ondansetron HCl) - Dose: 4 mg : IV Push Ordered by: Panchito Mora MD Entered by: Panchito Mora MD Jul 19, 2016 19:07 , Acknowledged by: Jose Greenberg RN MonJul 19, 2016 19:09 Documented as given by: Jose Greenberg RN Jul 19, 2016 19:18 Patient, Medication, Dose, Route and Time verified prior to administration. IV SITE #1 IVP, initial medication, Slowly, Awake and alert- acceptable, Connections checked prior to administration, Line traced prior to administration, Catheter placement confirmed via flush prior to administration, IV site without signs or symptoms of infiltration during medication administration, No swelling during administration, No drainage during administration, IV flushed after administration, Correct patient, time, route, dose and medication confirmed prior to administration, Patient advised of actions and side-effects prior to administration, Allergies confirmed and medications reviewed prior to administration, Patient in position of comfort, Side rails up, Cart in lowest position, Family at bedside, Call light in reach. Reglan injection: Order: Reglan injection (metoclopramide HCl) - Dose: 10 mg : IV Push Ordered by: Panchito Mora MD Entered by: Panchito Mora MD Jul 19, 2016 23:13 , Acknowledged by: Cindi Ellis RN MonJul 19, 2016 23:16 Documented as given by: Cindi Ellis RN MonJul 19, 2016 23:16 Patient, Medication, Dose, Route and Time verified prior to administration. Amount given: 10 mg, IV SITE #1 added to existing IV Fluid, Type: &a-1R&a+25V*p+0X*r0846U*c202B*c15G*c2P*p-0X&a-25V&a+1R Name: Angelita Crowell : 1990 F25 MedRec: [id number] AcctNum: [id number] Prepared: MonJul 20, 2016 01:01 by Interface Page 8 of 16 pMD [facility] EMERGENCY RECORD normal saline, Amount of fluid remaininmL, Awake and alert- acceptable, Ordering Physician approved to Give, Catheter placement confirmed via flush prior to administration, IV site without signs or symptoms of infiltration during medication administration, No swelling during administration, No drainage during administration, IV flushed after administration, Correct patient, time, route, dose and medication confirmed prior to administration, Patient advised of actions and side-effects prior to administration, Allergies confirmed and medications reviewed prior to administration, Patient tolerated procedure well, Patient in position of comfort, Side rails up, Cart in lowest position, Call light in reach, ERMD orders Reglan to be added to existing IV fluids; order read back and verified. sodium chloride 0.9 % intravenous: Order: sodium chloride 0.9 % intravenous (0.9 % sodium chloride) - Dose: 1000 mL : IV Fluid Infusion Ordered by: Panchito Mora MD Entered by: Panchito Mora MD MonJul 19, 2016 19:07 Documented as given by: Jose Greenberg RN MonJul 19, 2016 19:20 Patient, Medication, Dose, Route and Time verified prior to administration. IV SITE #1 IV fluids established for hydration, IV SITE #1 into right antecubital, IV SITE #1 1st bag hung, amount 1 Liter hung, IV SITE #1 bolus of 1000 ml established, via primary tubing, Awake and alert- acceptable, Connections checked prior to administration, Line traced prior to administration, Catheter placement confirmed via flush prior to administration, IV site without signs or symptoms of infiltration during medication administration, No swelling during administration, No drainage during administration, IV flushed after administration, Correct patient, time, route, dose and medication confirmed prior to administration, Patient advised of actions and side-effects prior to administration, Allergies confirmed and medications reviewed prior to administration, Patient in position of comfort, Side rails up, Cart in lowest position, Family at bedside, Call light in reach. : Follow Up : Response assessment performed, No signs or symptoms of allergic reaction noted, Site inspection shows, No swelling at administration site, No drainage at administration site, No bleeding at site, No bruising noted at site, _IV SITE #1:_, IV fluid infusion discontinued, on MonJul 19, 2016 20:43, Total fluid hydration time IV site 1 1 hour, 25 minutes, ., Total amount infused: 1 liter, IV Line flushed after administration, Advised not to ambulate without assistance, Patient in position of comfort, Side rails up, Cart in lowest position, Family at bedside, Call light in reach, Attending physician aware. (20:42 [facility]) : Follow Up : Response assessment performed, No signs or symptoms of allergic reaction noted, _IV SITE #1:_, IV fluid infusion discontinued, on MonJul 19, 2016 21:45, Total fluid hydration time IV site 1 2 hours, 25 minutes, ., Total amount infused: 1 LITER, IV Line flushed after administration. (22:08 [facility]) sodium chloride 0.9 % intravenous: Order: sodium chloride 0.9 % intravenous (0.9 % sodium chloride) - Dose: 1000 mL : IV &a-1R&a+25V*p+0X*t0550X*c202B*c15G*c2P*p-0X&a-25V&a+1R Name: Angelita Crowell : 1990 F25 MedRec: [id number] AcctNum: [id number] Prepared: MonJul 20, 2016 01:01 by Interface Page 9 of 16 D [facility] EMERGENCY RECORD Fluid Infusion Ordered by: Panchito Mora MD Entered by: Panchito Mora MD MonJul 19, 2016 20:07 , Acknowledged by: Cindi Ellis RN MonJul 19, 2016 20:30 Documented as given by: Cindi Ellis RN MonJul 19, 2016 20:37 Patient, Medication, Dose, Route and Time verified prior to administration. Amount given: 1000mL, IV SITE #1 IV fluids established for hydration, IV SITE #1 into right antecubital, IV SITE #1 2nd bag hung, amount 1 Liter hung, IV SITE #1 bolus of 1000 ml established, via primary tubing, Awake and alert- acceptable, Ordering Physician approved to Give, Catheter placement confirmed via flush prior to administration, IV site without signs or symptoms of infiltration during medication administration, No swelling during administration, No drainage during administration, IV flushed after administration, Correct patient, time, route, dose and medication confirmed prior to administration, Patient advised of actions and side-effects prior to administration, Allergies confirmed and medications reviewed prior to administration, Patient in position of comfort, Side rails up, Cart in lowest position, Family at bedside, Call light in reach. : Follow Up : Response assessment performed, No signs or symptoms of allergic reaction noted, Site inspection shows, No swelling at administration site, No drainage at administration site, No bleeding at site, No bruising noted at site, _IV SITE #1:_, IV fluid infusion discontinued, on MonJul 19, 2016 21:46, Total fluid hydration time IV site 1 1 hour, 10 minutes, ., Total amount infused: 1 liter, IV Line flushed after administration, Advised not to ambulate without assistance, Patient in position of comfort, Side rails up, Cart in lowest position, Family at bedside, Call light in reach, Attending physician aware. (21:46 [facility]) sodium chloride 0.9 % intravenous: Order: sodium chloride 0.9 % intravenous (0.9 % sodium chloride) - Dose: 500 mL : IV Fluid Infusion Notes: (Bolus) Ordered by: Panchito Mora MD Entered by: Panchito Mora MD MonJul 19, 2016 22:04 , Acknowledged by: Travis Burks RN MonJul 19, 2016 22:12 Documented as given by: Cindi Ellis RN MonJul 19, 2016 22:13 Patient, Medication, Dose, Route and Time verified prior to administration. Amount given: 500mL, IV SITE #1 IV fluids established for hydration, IV SITE #1 into right antecubital, IV SITE #1 3rd bag hung, amount 500ml hung, IV SITE #1 bolus of 500 ml established, via primary tubing, Awake and alert- acceptable, Ordering Physician approved to Give, Catheter placement confirmed via flush prior to administration, IV site without signs or symptoms of infiltration during medication administration, No swelling during administration, No drainage during administration, IV flushed after administration, Correct patient, time, route, dose and medication confirmed prior to administration, Patient advised of actions and side-effects prior to administration, &a-1R&a+25V*p+0X*k5895J*c202B*c15G*c2P*p-0X&a-25V&a+1R Name: Angelita Crowell : 1990 F25 MedRec: [id number] AcctNum: [id number] Prepared: MonJul 20, 2016 01:01 by Interface Page 10 of 16 pMD [facility] EMERGENCY RECORD Allergies confirmed and medications reviewed prior to administration, Patient tolerated procedure well, Patient in position of comfort, Side rails up, Cart in lowest position, Family at bedside, Call light in reach. : Follow Up : Response assessment performed, Site inspection shows, No swelling at administration site, No drainage at administration site, No bleeding at site, No bruising noted at site, _IV SITE #1:_, IV fluid infusion discontinued, on MonJul 19, 2016 22:53, 45 minutes, ., Total amount infused: 500mL, IV Line flushed after administration, Advised not to ambulate without assistance, Patient in position of comfort, Side rails up, Cart in lowest position, Family at bedside, Call light in reach, Attending physician aware. (22:40 [facility]) sodium chloride 0.9 % intravenous: Order: sodium chloride 0.9 % intravenous (0.9 % sodium chloride) - Dose: 500 mL : IV Fluid Infusion Notes: (Bolus) Read back and verified, Verbal Order Ordered by: Panchito Mora MD Entered by: Cindi Ellis RN MonJul 19, 2016 22:52 , Acknowledged by: Cindi Ellis RN MonJul 19, 2016 22:52 Documented as given by: Cindi Ellis RN MonJul 19, 2016 22:52 Patient, Medication, Dose, Route and Time verified prior to administration. Amount given: 500mL, IV SITE #1 IV fluids established for hydration, IV SITE #1 into right antecubital, IV SITE #1 4th bag hung, amount 500ml hung, IV SITE #1 bolus of 500 ml established, via primary tubing, Awake and alert- acceptable, Ordering Physician approved to Give, Catheter placement confirmed via flush prior to administration, IV site without signs or symptoms of infiltration during medication administration, No swelling during administration, No drainage during administration, IV flushed after administration, Correct patient, time, route, dose and medication confirmed prior to administration, Patient advised of actions and side-effects prior to administration, Allergies confirmed and medications reviewed prior to administration, Patient tolerated procedure well, Patient in position of comfort, Side rails up, Cart in lowest position, Family at bedside, Call light in reach. : Follow Up : _IV SITE #1:_, IV fluid infusion discontinued, on MonJul 19, 2016 23:30, 40 minutes, ., Total amount infused: 500ML. (23:30 [facility]) Tylenol: Order: Tylenol (acetaminophen) - Dose: 650 mg : Oral Ordered by: Panchito Mora MD Entered by: Panchito Mora MD MonJul 19, 2016 19:04 , Acknowledged by: Jose Greenberg RN Jul 19, 2016 19:09 Documented as given by: Jose Greenberg RN Jul 19, 2016 19:11 Patient, Medication, Dose, Route and Time verified prior to administration. Patient appears Awake and alert- acceptable, Correct patient, time, &a-1R&a+25V*p+0X*v9776D*c202B*c15G*c2P*p-0X&a-25V&a+1R Name: Angelita Crowell : 1990 F25 MedRec: [id number] AcctNum: [id number] Prepared: MonJul 20, 2016 01:01 by Interface Page 11 of 16 pMD [facility] EMERGENCY RECORD route, dose and medication confirmed prior to administration, Patient advised of actions and side-effects prior to administration, Allergies confirmed and medications reviewed prior to administration, Patient in position of comfort, Side rails up, Cart in lowest position, Family at bedside, Call light in reach. Zofran oral: Order: Zofran oral (ondansetron HCl) - Dose: 4 mg : IV Push Schedule: Now Notes: Read back and verified, Verbal Order Ordered by: Panchito Mora MD Entered by: Cindi Ellis RN MonJul 19, 2016 22:12 , Acknowledged by: Cindi Ellis RN MonJul 19, 2016 22:12 Documented as given by: Cindi Ellis RN Jul 19, 2016 22:19 Patient, Medication, Dose, Route and Time verified prior to administration. Amount given: 4mg, IV SITE #1 IVP, initial medication, Slowly, Awake and alert- acceptable, Ordering Physician approved to Give, Catheter placement confirmed via flush prior to administration, IV site without signs or symptoms of infiltration during medication administration, No swelling during administration, No drainage during administration, IV flushed after administration, Correct patient, time, route, dose and medication confirmed prior to administration, Patient advised of actions and side-effects prior to administration, Allergies confirmed and medications reviewed prior to administration, Patient tolerated procedure well, Administered by CHARGE NURSE, Patient in position of comfort, Side rails up, Cart in lowest position, Family at bedside, Call light in reach. HPI URI (21:51 [facility]) CHIEF COMPLAINT: Patient presents for evaluation of nasal congestion. HISTORIAN: History provided by patient, SINUS PRESSURE ON RIGHT WITH PAIN BEHIND THE RIGHT EYE FOR 4 DAYS. 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 HAS GREEN NASAL DRAINAGE. NO FEVER OR CHILLS. HAS BEEN VOMITING AND UNABLE TO KEEP ANYTHING DOWN FOR 2 DAYS. SENT HERE FROM WORK TODAY BECAUSE OF VOMITING. IS DIABETIC AND HAS NOT BEEN TAKING HER INSULIN. NO ABDOMINAL PAINS OR OTHER SYMPTOMS. LOCATION: No localizing symptoms. QUALITY: Pain is dull in nature, described as aching, described as a sensation of fullness, described as pressure-like. SEVERITY: Maximum severity of symptoms mild, Currently symptoms are mild. TIME COURSE: Gradual onset of symptoms, Symptoms are worsening. ASSOCIATED WITH: No associated chest pain, No associated chills, No associated fever, No associated neck pain, No associated shortness of breath, Denies any other complaints. EXACERBATED BY: Patient's condition exacerbated by nothing. RELIEVED BY: Patient's condition relieved by nothing. &a-1R&a+25V*p+0X*t4702D*c202B*c15G*c2P*p-0X&a-25V&a+1R Name: Angelita Crowell : 1990 F25 MedRec: [id number] AcctNum: [id number] Prepared: MonJul 20, 2016 01:01 by Interface Page 12 of 16 pMD [facility] EMERGENCY RECORD ROS (21:53 [facility]) CONSTITUTIONAL: Historian denies chills, denies fever, denies weakness. EYES: Historian reports eye pain, denies eye redness, denies vision changes. ENT: Historian reports rhinorrhea, reports sinus pain, denies sore throat, denies stridor. CARDIOVASCULAR: Historian denies chest pain, denies diaphoresis. RESPIRATORY: Historian denies cough, denies shortness of breath, denies sputum, denies stridor, denies wheezing. GI: Historian denies abdominal pain, reports nausea, reports vomiting. MUSCULOSKELETAL: Historian denies back pain, denies neck pain. SKIN: Historian denies skin changes, denies skin lesions. NEUROLOGIC: Historian denies confusion, denies dizziness, denies focal weakness, denies headache. HEMO/LYMPHATIC: Normal hematologic/lymphatic system review, Historian denies petechiae. PSYCHIATRIC: Negative psychiatric review of systems, Historian denies anxiety. PAST MEDICAL HISTORY (18:47 [facility]) MEDICAL HISTORY: Flu vaccine not up to date, Tetanus not up to date, Pneumococcal vaccine up to date, Date of immunization: 2014, Past medical history includes history of diabetes, Type II, Past medical history includes history of diabetes, Type II. FEMALE SURGICAL HISTORY: Surgical history of section. SOCIAL HISTORY: Patient has no smoking history, Patient denies alcohol use, Patient denies drug use. FAMILY HISTORY: Notes: family HX hypertension. PHYSICAL EXAM (21:54 [facility]) CONSTITUTIONAL: Vital Signs Reviewed, Patient afebrile, Patient appears non toxic, Patient appears pain free, Patient alert and oriented to person, place and time, Nursing notes reviewed. HEAD: Head exam included findings of head atraumatic, normocephalic. EYES: Eye exam included findings of eyelids normal to inspection, Pupils equally round and reactive to light, Extraocular muscles intact, Conjunctiva normal, Sclera normal, no periorbital ecchymosis, no periorbital edema, no periorbital erythema. ENT: Ear exam normal, tympanic membranes normal, Nose exam included findings of, turbinate mucosa discharge, ERYTHEMA AND SWELLING OF TURBINATES WITH YELLOW CORYZA, Pharynx, injected bilaterally, no swelling, symmetrical, Uvula, without edema, midline, Tonsils, not enlarged, without exudates, Mouth exam normal, Maxillary sinuses with, tenderness on the right, &a-1R&a+25V*p+0X*s9400G*c202B*c15G*c2P*p-0X&a-25V&a+1R Name: Angelita Crowell : 1990 F25 MedRec: [id number] AcctNum: [id number] Prepared: MonJul 20, 2016 01:01 by Interface Page 13 of 16 pMD [facility] EMERGENCY RECORD no erythema, no swelling. NECK: Neck exam normal, Neck exam included findings of normal range of motion, no meningeal signs. RESPIRATORY CHEST: Respiratory and chest exam normal, Respiratory exam included findings of no respiratory distress, Breath sounds clear, No wheezing, No rales, No rhonchi, Breath sounds not diminished. CARDIOVASCULAR: Cardiovascular exam included findings of, rate tachycardic, rhythm regular, Heart sounds normal, normal S1, normal S2, no murmurs, no rub, no gallop. ABDOMEN FEMALE: Abdominal exam normal, Abdominal exam included findings of abdomen nontender, Bowel sounds normal, Liver normal, Spleen normal, no distension, no mass, no pulsatile masses. BACK: Back exam included findings of normal inspection, range of motion normal. UPPER EXTREMITY: Upper extremity exam included findings of inspection normal, Range of motion normal. LOWER EXTREMITY: Lower extremity exam included findings of inspection normal, Range of motion normal. NEURO: Neuro exam normal, Neuro exam findings include patient oriented to person, place and time, Speech normal, Memory normal, Cranial nerves intact, no focal motor deficits. SKIN: Skin exam included findings of skin warm, dry, and normal in color. PSYCHIATRIC: Psychiatric exam normal, Normal affect. LAB INTERPRETATION (21:56 [facility]) INTERPRETATION: CBC normal, Chemistry abnormal, Sodium decreased, Glucose elevated, Bicarbonate decreased, Liver functions normal, Urine HCG negative, Influenza negative. EVENTS TRANSFER: Triage to Emergency Triage. (MonJul 19, 2016 18:45 J[facility]) Emergency Triage to Emergency Room -02. (19:10 [facility]) Removed from Emergency Emergency Room -02. (MonJul 20, 2016 00:40 [facility]) O2SAT INTERPRETATION (22:01 AG[facility]) O2SAT: Continuous pulse oximetry, Oxygen saturation 98%, on room air, Oxygen saturation interpretation: Normal, No intervention required. DOCTOR NOTES (21:58 AGRE) RE-EVALUATION: Routine re-evaluation, after administration of antiemetics, Routine re-evaluation, after administration of IV fluids, The patient's condition has improved. TEXT: PATIENT REMAINED IN SINUS TACHYCARDIC IN THE ED DESPITE 3 LITERS OF IV FLUIDS. REVIEW OF HER OLD RECORDS SHOW THAT SHE HAS BEEN TACHYCARDIC FOR YEARS WITH ALL HER ED VISITS. A TSH WAS &a-1R&a+25V*p+0X*t2850C*c202B*c15G*c2P*p-0X&a-25V&a+1R Name: Angelita Crowell : 1990 F25 MedRec: [id number] AcctNum: [id number] Prepared: MonJul 20, 2016 01:01 by Interface Page 14 of 16 pMD [facility] EMERGENCY RECORD OBTAINED AND IT IS LOW SUGGESTING HYPERTHYRODISM. SHE HAD ELEVATED SERUM KETONES FROM AN EARLIER SPECIMEN BUT A VENOUS BLOOD GAS WAS OBTAINED DUE AND HER PH IS 7.44 AND BICARB 21. SHE LOOKS GOOD AND SAYS SHE FEELS GOOD. SHE DENIES ANY PAIN OR OTHER SYMPTOMS. SHE HAS REMAINED ALERT AND ORIENTED WITHOUT NEURO CHANGES IN THE ED. FEELING BETTER AFTER IV FLUIDS AND INSULIN. PATIENT SAYS DOES NOT TAKE HER INSULIN BECAUSE SHE IS STUBBORN. HAD LENGTHY DISCUSSION WITH HER ABOUT THE COURIER RISK AND DISEASE ASSOCIATED WITH DIABETES AND UNCONTROLLED HYPERGLYCEMIA. ADVISED HER OF THE FINDINGS ON EXAM, RESULTS OF HER TEST, MANAGEMENT OF HER SYMPTOMS, NEED TO RESTART HER INSULIN AND NEED FOR CLOSE FOLLOW UP. SHE EXPRESS UNDERSTANDING AND AGREEMENT AND SAYS THAT SHE WILL RESTART HER MEDICATIONS. SHE HAS A FAMILY MEMBER HERE WHO IS A NURSE AND WILL BE TAKING CARE OF HER AT HOME. SHE WILL CHECK HER BLOOD SUGAR TONIGHT AND WILL RESTART HER INSULIN IN THE MORNING. SHE DOES NOT LOOK TOXIC AND I FEEL COMFORTABLE SENDING HER HOME AT THIS TIME. DISCUSSED THIS WITH HER AND THE FAMILY AND THEY AGREE WITH THIS PLAN. ADVISED THEM OF THE TACHYCARDIA AND TSH. PATIENT STATUS: Patient has improved since arrival to emergency department. PATIENT PLAN: The patient will be discharged. DATA REVIEWED: Old records obtained, Old records reviewed, Discussed with family, Lab data reviewed. PROBLEM LIST No recorded problems DIAGNOSIS (MonJul 20, 2016 00:29 AGRE) FINAL: PRIMARY: Type 2 Diabetes mellitus (NIDDM) - controlled, ADDITIONAL: ACUTE SINUSITIS UNSPECIFIED, HYPERTHYROIDISM. DISPOSITION PATIENT: Disposition Type: Discharge, Disposition: *Discharge Home, Condition: Improved. (20:48 AGRE) Disposition Type: (none), Disposition: (none). (22:58 AGRE) Disposition Type: Discharge, Disposition: *Discharge Home. (23:42 AGRE) Patient left the department. (MonJul 20, 2016 00:40 [facility]) INSTRUCTION (MonJul 20, 2016 00:30 AGRE) DISCHARGE: HYPERGLYCEMIA DIABETIC, SINUSITIS, ABX TX, HYPERTHYROIDISM. [facility]UP[facility] , . SPECIAL: MAKE SURE TO DRINK LOTS OF WATER DAILY TO PREVENT DEHYDRATION. FOLLOW UP WITH YOUR PRIMARY CARE PHYSICIAN TOMORROW TO MANAGE YOUR DIABETES AND YOUR SINUS INFECTION. FOLLOW UP WITH YOUR PHYSICIAN IN THE MORNING TO DISCUSS YOUR BLOOD SUGAR MANAGEMENT AND YOUR HYPERTHYROIDISM. &a-1R&a+25V*p+0X*b7501H*c202B*c15G*c2P*p-0X&a-25V&a+1R Name: Angelita Crowell : 1990 F25 MedRec: [id number] AcctNum: [id number] Prepared: MonJul 20, 2016 01:01 by Interface Page 15 of 16 pMD [facility] EMERGENCY RECORD PRESCRIPTION Levemir: VIAL (ML) : 100 unit/mL : SUBCUTANEOUS : Quantity: 7 Unit: units Route: SUBCUTANEOUS Schedule: 2 times a day Dispense: 1 Unit: vial(s) May substitute. Refills: No Refills . (20:53 AGRE) NOTES: No Refills. (20:53 AGRE) Augmentin: TABLET : 875 mg-125 mg : ORAL : Quantity: 1 Unit: tab(s) Route: ORAL Schedule: every 12 hours Dispense: 20 Unit: tab(s) May substitute. Refills: No Refills . (20:54 AGRE) NOTES: No Refills. (20:54 AGRE) Zofran oral: TABLET : 4 mg : ORAL : Quantity: 1 Unit: tab(s) Route: ORAL Schedule: every 6 hours PRN Dispense: 10 May substitute. Refills: No Refills . (20:56 AGRE) NOTES: No Refills. (20:56 AGRE) IMAGING (MonJul 20, 2016 00:39 [facility]) *SUPPLY CHARGE SHEET: Image captured from scanner. *DISCHARGE INSTRUCTIONS RECEIPT: Image captured from scanner. Page 2 added. Image captured from scanner. ADMIN (MonJul 20, 2016 00:46 AGRE) DIGITAL SIGNATURE: MD Mora Andrea. Hightower: LIZETTE=MD Mora Andrea JPAR=ELIZABETH Greenberg, Jose DOZIER=ELIZABETH Burks, Travis LK=ELIZABETH Garcia, Marilou SHARMAI=ELIZABETH Ellis, Cindi &a-1R&a+25V*p+0X*t9419Q*c202B*c15G*c2P*p-0X&a-25V&a+1R Name: Socrates Angelita : 1990 F25 MedRec: [id number] AcctNum: [id number] Prepared: MonJul 20, 2016 01:01 by Interface Page 16 of 16 pMD MTDD
== END 2016-07-20 00:30 | disposition home or self-care (01) ==
LOC: NAV ERS 18:29
DX: J01.90 Acute sinusitis, unspecified (principal); E05.90 Thyrotoxicosis, unspecified without thyrotoxic crisis or storm; E11.9 Type 2 diabetes mellitus without complications
CPT/HCPCS: 36416; 80048; 81003; 81015; 81025; 82010; 82805; 84443; 85025; 96361; 96372; 96374; 96375; 96376; 36415-59; J1815; J2405; J2765; J7050

== ENCOUNTER 2016-11-26 14:16 | Emergency (ER) | payer MEDICAID, OTHER ==
[2016-11-26 14:45] LABS: #Basophils 0.1 thou/uL (0.0-0.2); #Lymphocytes 1.2 thou/uL (1.20-3.40); #Monocytes 0.5 thou/uL (0.11-0.59); #Neutrophils 16.6 thou/uL (1.40-6.50); %Basophils 0.3 % (0.0-1.0); %Lymphocytes 6.5 % (21.0-51.0); %Monocytes 2.9 % (0.0-10.0); %Neutrophils 90.3 % (42.0-75.0); Mean Corpuscular HGB CONC 31.8 g/dL (32.0-36.0); Mean Corpuscular Hemoglobin 26.1 pg (27.0-31.0); Mean Corpuscular Volume 82.1 fl (81.0-99.0); Mean Platelet Volume 8.9 fL (7.4-10.4); Platelet Count 300 thou/uL (130-400); RBC Distribution Width 13.3 % (11.5-14.5); White Blood Cell (WBC) Count 18.4 thou/uL (4.8-10.8)
[2016-11-26] MEDS ORDERED: Ondansetron HCl/PF 4 MG/2 ML Vial ONE (15:01)
[2016-11-26 15:10] LABS: ALT (SGPT) 13 U/L (8-55); AST (SGOT) 12 U/L (5-34); Albumin 4.6 g/dL (3.5-5.0); Alkaline Phosphatase 83 U/L (40-150); Anion Gap 25 mmol/L (10-20); BUN (Urea Nitrogen) 13 mg/dL (7.0-18.7); Bilirubin, Total 1.2 mg/dL (0.2-1.2); Calc. Creatinine Clearance 0 mL/min (70-130); Calcium 9.8 mg/dL (7.8-10.44); Carbon Dioxide 14 mmol/L (22-29); Chloride 97 mmol/L (98-107); Estimated GFR-MDRD 79; Globulin 3.8 g/dL (2.4-3.5); Glucose 494 mg/dL (70-105); Lipase 14 U/L (8-78); Magnesium 2.3 mg/dL (1.6-2.6); Potassium 3.6 mmol/L (3.5-5.1); Protein, Total 8.4 g/dL (6.0-8.3); Sodium 132 mmol/L (136-145)
[2016-11-26 15:13] LABS: CKMB 0.7 ng/mL (0-6.6); Troponin I Less than 0.010 ng/mL (< 0.028)
[2016-11-26 15:56] LABS: Bilirubin Negative (Negative); Blood, Urine Negative (Negative); Clarity Clear (Clear); Glucose, Urine (Dipstick) 500 mg/dL (Negative); Leukocyte Negative (Negative); Nitrite Negative (Negative); Protein, Urine (Dipstick) 30 mg/dL (Neg-Trace); Specific Gravity, Urine 1.015 (1.005-1.030); Urobilinogen 0.2 mg/dL (0.2-1.0); pH, Urine 5.5 (5.0-9.0)
--- NOTE | 2016-11-26 16:00 | RAD ---
AP VIEW OF CHEST: Date: 11/26/16 HISTORY: Abdominal pain. Vomiting for 3 days. FINDINGS: AP view of chest obtained. Comparison made to previous exam from 09/10/13. AP view of chest demonstrates the lungs to be well aerated. No evidence of active intrathoracic dise ase seen. No evidence of effusions, pneumonia, or pneumothorax seen. IMPRESSION: Unremarkable AP view of chest. POS: [facility]
[2016-11-26 16:03] LABS: Bacteria/HPF Rare-Few HPF (None Seen); RBC/HPF 0-3 HPF (0-3); Squamous Epithelial 0-3 HPF (0-3); WBC/HPF None Seen HPF (0-3)
[2016-11-26 16:04] LABS: Pregnancy Test - Urine (BHCG) Negative (NEGATIVE); Pregu Control Background? CLEAR/WHITE (CLR/WHITE); Pregu Control Bar Appear? YES (CONTROL BAR); Specific Gravity 1.015 (1.002-1.036)
[2016-11-26 16:18] LABS: Amphetamine Not Detected (NotDetected); Barbiturates Screen Not Detected (NotDetected); Benzodiazepine Screen Not Detected (NotDetected); Cocaine Metabolite Screen Not Detected (NotDetected); Medtox Control Line Valid? VALID (VALID); Methadone Not Detected (NotDetected); Methamphetamine Not Detected (NotDetected); Opiate Screen Not Detected (NotDetected); Oxycodone Screen Not Detected (NotDetected); Phencyclidine (PCP) Not Detected (NotDetected); THC/Cannabinoid Screen Not Detected (NotDetected); Tricyclic Screen Not Detected (NotDetected)
[2016-11-26] MEDS ORDERED: Lidocaine 4% Cream 5 GM TUBE w/ Tegaderm ONE (16:45)
[2016-11-26] MEDS ORDERED: Insulin Regular 300 UNITS/3 ML VIAL ONE (16:45)
[2016-11-26] MEDS ORDERED: Sodium Chloride 0.9% 100 ML ONE (16:45)
[2016-11-26] MEDS ORDERED: NS 0.9% w/ 20 MEQ KCL 1,000 ML ONE (18:18)
[2016-11-26] MEDS ORDERED: Mag-Al Plus 1200 MG/1200 MG/120 MG/30 ML UDCUP ONE (18:23)
== END 2016-11-26 18:28 | disposition short-term general hospital (02) ==
LOC: NAV ERS 14:16
DX: E10.10 Type 1 diabetes mellitus with ketoacidosis without coma (principal); Z79.899 Other long term (current) drug therapy
CPT/HCPCS: 36415; 36416; 51701; 71010; 80053; 80306; 81003; 81015; 81025; 82010; 82553; 83605; 83690; 83735; 84484; 85025; 87040; 93005; 96361; 96365; 96366; 96375; A4353; J1815; J2405